=== PATIENT | male | born 1950 | race Caucasian/White ===

== ENCOUNTER 2016-04-06 12:10 | Inpatient (IN) | payer OTHER ==
[~2016-04-06] VITALS: Ht 175.3 cm; Wt 107.3 kg
[2016-04-06 12:48] LABS: Basophils # (auto) 0.1 uL; Basophils % (auto) 0.4 % (0.0-2.0); Eosinophils # (auto) 0.1 uL; Eosinophils % (auto) 1.1 % (0.0-7.0); Hematocrit 49.2 % (41.0-53.0); Hemoglobin 16.3 g/dL (13.5-17.5); Mean Corpuscular Hemoglobin 30.7 pg (28.0-32.0); Mean Corpuscular Hgb Conc. 33.1 g/dL (32.0-36.0); Mean Corpuscular Volume 92.7 fL (80.0-100.0); Mean Platelet Volume 9.7 fL (7.4-10.4); Monocytes # (auto) 0.7 uL; Neutrophils # (auto) 9.5 uL; Neutrophils % (auto) 76.5 % (37.0-80.0); Platelet Count (auto) 304 10^3/uL (140-450); Red Cell Distribution Width 14.1 % (11.6-16.0); White Blood Cell 12.4 10^3/uL (4.4-10.8)
[2016-04-06 13:12] LABS: Albumin 3.5 g/dL (3.4-5.0); Calcium 8.5 mg/dL (8.5-10.1); Potassium 4.1 mmol/L (3.5-5.1); Total Protein 6.9 g/dL (6.4-8.2)
[2016-04-06] MEDS ORDERED: IOHEXOL 300 MG/ML 100ML BOTTLE IJ ONE (20:34)
[2016-04-06 20:53] LABS: Partial Thromboplastin Time 27.1 sec (22.64-33.71)
[2016-04-06 20:55] LABS: INR 1.17 (0.9-1.15)
[2016-04-06 21:13] LABS: Hematocrit 43.7 % (41.0-53.0); Hemoglobin 14.4 g/dL (13.5-17.5)
[2016-04-06] MEDS ORDERED: SODIUM CHLORIDE 0.9% 1,000 ML IV ONE (22:00)
[2016-04-06] MEDS ORDERED: NITROGLYCERIN 0.4 MG SL TAB SL PRN (23:00)
[2016-04-06] MEDS ORDERED: ONDANSETRON HCL 4 MG/2 ML VIAL IV PRN (23:00)
[2016-04-06] MEDS ORDERED: ACETAMINOPHEN 325 MG TAB PO PRN (23:00)
[2016-04-06] MEDS ORDERED: HYDROcodone-ACET 5/325MG TAB PO PRN (23:00)
[2016-04-06] MEDS ORDERED: MORPHINE SULF INJ 2 MG/ML SYRINGE 1ML IV PRN (23:00)
[2016-04-07] MEDS ORDERED: PANTOPRAZOLE SODIUM 40 MG/10 ML VIAL IV ONE (00:29)
[2016-04-07 00:41] LABS: Hematocrit 42.7 % (41.0-53.0); Hemoglobin 14.2 g/dL (13.5-17.5)
[2016-04-07] MEDS: PANTOPRAZOLE SODIUM 80 MG in SODIUM CHL 0.9% 60 ML IV SCH ×2 (01:02→09:45)
[2016-04-07] MEDS: SODIUM CHLORIDE 0.9% 1,000 ML IV SCH ×3 (01:02→21:19)
[2016-04-07 01:10] LABS: Gastric Occult Blood Positive (Negative)
[2016-04-07 01:40] VITALS: BP 128/74
[2016-04-07] MEDS ORDERED: LOSA25TA9 PO (03:19)
[2016-04-07] MEDS ORDERED: ASPI-231 PO (03:20)
[2016-04-07] MEDS ORDERED: PNEUMOCOCCAL VACC POLYS 25 MCG/0.5 ML VIAL IM ONE (05:00)
[2016-04-07 05:28] VITALS: BP 112/64
[2016-04-07 06:26] LABS: Potassium 3.8 mmol/L (3.5-5.1)
[2016-04-07 06:31] LABS: Albumin 3.1 g/dL (3.4-5.0); BUN/Creatinine Ratio 15.1
[2016-04-07 06:34] LABS: Bilirubin, Total 1.1 mg/dL (0.2-1.0); Total Protein 5.5 g/dL (6.4-8.2)
[2016-04-07 06:45] LABS: Basophils # (auto) 0.1 uL; Basophils % (auto) 0.6 % (0.0-2.0); Eosinophils # (auto) 0.4 uL; Hematocrit 40.3 % (41.0-53.0); Lymphocytes # (auto) 3.6 uL; Lymphocytes % (auto) 32.1 % (10.0-50.0); Mean Corpuscular Hemoglobin 32.2 pg (28.0-32.0); Mean Corpuscular Hgb Conc. 34.6 g/dL (32.0-36.0); Mean Platelet Volume 9.9 fL (7.4-10.4); Monocytes % (auto) 8.5 % (0.0-12.0); Neutrophils # (auto) 6.1 uL; Neutrophils % (auto) 54.8 % (37.0-80.0); Platelet Count (auto) 243 10^3/uL (140-450); White Blood Cell 11.2 10^3/uL (4.4-10.8)
[2016-04-07 09:00] VITALS: BP 97/46
[2016-04-07] MEDS: LOSARTAN POTASSIUM 25 MG TAB PO SCH (09:41)
[2016-04-07] MEDS ORDERED: HCTZ 25 MG TAB PO SCH (10:00)
[2016-04-07] MEDS ORDERED: GOLYTELY 4L KIT PO ONE (11:30)
[2016-04-07 12:03] LABS: Hematocrit 38.2 % (41.0-53.0); Hemoglobin 12.9 g/dL (13.5-17.5)
[2016-04-07 13:00] VITALS: BP 115/66
[2016-04-07 13:59] LABS: Hematocrit 36.8 % (41.0-53.0); Hemoglobin 12.1 g/dL (13.5-17.5)
[2016-04-07 17:00] VITALS: BP 114/72
[2016-04-07 18:08] LABS: Hemoglobin 12.5 g/dL (13.5-17.5)
[2016-04-07] MEDS: PANTOPRAZOLE 40 MG TAB PO SCH (21:38)
[2016-04-07 22:00] VITALS: BP 115/66
[2016-04-07 22:17] LABS: Hematocrit 33.9 % (41.0-53.0); Hemoglobin 11.4 g/dL (13.5-17.5)
[2016-04-08 05:15] VITALS: BP 104/63
[2016-04-08 05:59] LABS: Basophils # (auto) 0.1 uL; Basophils % (auto) 0.9 % (0.0-2.0); Eosinophils # (auto) 0.3 uL; Eosinophils % (auto) 3.9 % (0.0-7.0); Hematocrit 29.9 % (41.0-53.0); Lymphocytes # (auto) 2.9 uL; Lymphocytes % (auto) 34.6 % (10.0-50.0); Mean Corpuscular Hemoglobin 31.2 pg (28.0-32.0); Mean Corpuscular Hgb Conc. 33.4 g/dL (32.0-36.0); Mean Corpuscular Volume 93.4 fL (80.0-100.0); Monocytes # (auto) 0.7 uL; Monocytes % (auto) 8.5 % (0.0-12.0); Neutrophils # (auto) 4.4 uL; Neutrophils % (auto) 52.1 % (37.0-80.0); Platelet Count (auto) 229 10^3/uL (140-450); Red Cell Distribution Width 13.8 % (11.6-16.0); White Blood Cell 8.4 10^3/uL (4.4-10.8)
[2016-04-08 06:12] LABS: BUN/Creatinine Ratio 14.5; Calcium 7.6 mg/dL (8.5-10.1); Potassium 3.5 mmol/L (3.5-5.1)
[2016-04-08] MEDS ORDERED: LIDOCAINE VISCOUS 2% 15ML UD ONE (08:23)
[2016-04-08] MEDS ORDERED: SODIUM CHLORIDE LOCK 10 ML ONE (08:23)
[2016-04-08] MEDS ORDERED: FLUMAZENIL 0.1 MG/ML INJ 10ML MDV IV ONE (08:24)
[2016-04-08] MEDS ORDERED: diphenhdrAMINE HCL 50 MG/1 ML VL ONE (08:24)
[2016-04-08] MEDS ORDERED: NALOXONE HCL 0.4 MG/ML VIAL ONE (08:24)
[2016-04-08 08:32] VITALS: BP 115/60
[2016-04-08] MEDS: MIDAZOLAM HCL 5 MG/ML-1ML VIAL ONE ×4 (11:29→11:47)
[2016-04-08] MEDS: fentaNYL CITRATE 100 MCG/2 ML VL ONE ×4 (11:29→11:47)
[2016-04-08 16:37] VITALS: BP 114/68
[2016-04-08] MEDS: PANTOPRAZOLE 40 MG TAB PO SCH ×2 (16:48→22:52)
[2016-04-08] MEDS: LOSARTAN POTASSIUM 25 MG TAB PO SCH (16:48)
[2016-04-08 18:27] LABS: Hematocrit 30.8 % (41.0-53.0); Hemoglobin 10.3 g/dL (13.5-17.5)
[2016-04-08 22:00] VITALS: BP 118/58
[2016-04-08] MEDS ORDERED: SODIUM CHLORIDE 0.9% 1,000 ML IV SCH (22:54)
[2016-04-09 05:00] VITALS: BP 102/39
[2016-04-09 05:41] LABS: Hematocrit 29.4 % (41.0-53.0); Hemoglobin 9.7 g/dL (13.5-17.5)
[2016-04-09 08:19] VITALS: BP 113/58
[2016-04-09] MEDS: PANTOPRAZOLE 40 MG TAB PO SCH (09:52)
[2016-04-09] MEDS: LOSARTAN POTASSIUM 25 MG TAB PO SCH (09:53)
[2016-04-09] MEDS ORDERED: PANT40T PO (11:28)
[2016-04-09 12:29] VITALS: BP 113/76
[2016-04-09 13:10] VITALS: BP 113/76
[2016-04-09 17:08] VITALS: BP 124/76
== END 2016-04-09 13:10 | disposition home or self-care (01) | DRG 391 ==
LOC: ER 12:16 → TELE 12:17 → TELE-WESTW 23:40
PROVIDERS: ADMIT Internal Medicine; ATTEND Internal Medicine
PROC: 0DB68ZX Excision of Stomach, Via Natural or Artificial Opening Endoscopic, Diagnostic (ICD-10-PCS; principal; 2016-04-08 11:29)
PROC: 0DJD8ZZ Inspection of Lower Intestinal Tract, Via Natural or Artificial Opening Endoscopic (ICD-10-PCS; 2016-04-08 11:29)
DX: K29.80 Duodenitis without bleeding (principal); K57.31 Diverticulosis of large intestine without perforation or abscess with bleeding; K92.1 Melena; F17.210 Nicotine dependence, cigarettes, uncomplicated; I10 Essential (primary) hypertension; F12.90 Cannabis use, unspecified, uncomplicated; E66.9 Obesity, unspecified; K29.60 Other gastritis without bleeding; D45 Polycythemia vera; K29.70 Gastritis, unspecified, without bleeding; R73.9 Hyperglycemia, unspecified; M54.2 Cervicalgia; D50.0 Iron deficiency anemia secondary to blood loss (chronic); Z80.0 Family history of malignant neoplasm of digestive organs; Z98.890 Other specified postprocedural states; Z68.34 Body mass index [BMI] 34.0-34.9, adult; Z23 Encounter for immunization
CPT/HCPCS: 36415; 74177; 80048; 80053; 82271; 85014; 85018; 85025; 85610; 85730; 86850; 86900; 86901; 96360; C9113; J2250